=== PATIENT | female | born 1930 | race Caucasian/White ===

== ENCOUNTER 2017-07-08 18:51 | Emergency (ER) | payer MEDICARE, OTHER ==
[~2017-07-08] VITALS: Ht 152.4 cm; Wt 75.0 kg
[~2017-07-08 18:51] MED LIST: ACET325C PO; Aspirin-Expunged Drug, Do Not Renew! PO; CA C1TAB29 PO; CALC-762 PO; CYA1000I IM; CYAN10008 PO; CYCL1DRO BOTH_EYES; DOCU240C41 PO; GABA-502 PO; OXYC1TAB24 PO; POLY17PO6 PO
[2017-07-08 19:11] VITALS: BP 174/83; PULSE 65; RESP 18; O2SAT 97
--- NOTE | 2017-07-08 19:34 | ED.REPORT ---
HPI-Extremity Problem Upper Date of Service Jul 08, 2017 ED Provider: Kevon Miller DO Pt is an otherwise healthy 87 year old female who presents to the ED complaining of a hematoma on her left arm onset 3 days ago. She denies any other symptoms. Pt denies taking Warfarin, but she reports that she takes 81mg of Aspirin daily. She denies any known injury. Nursing Notes Stated Complaint: SPONTANEOUS HEMATOMA OF FOREARM Chief Complaint: Extremity Trauma Nursing Notes Reviewed: Yes Allergies: Coded Allergies: Sulfa (Sulfonamide Antibiotics) (Verified Allergy, Unknown, RASH, 11/16/15 ) alendronate sodium (Verified Allergy, Unknown, UNKNOWN, 05/15/16) Scheduled ([Aspirin-Expunged Drug, Do Not Renew!]) 325 MG TABLET 325 MG PO DAILY Ca Cmb 1/Vit D3/B-6/FA/B12/Av (Vitamin D3-Aloe 1,000 Unit Tab) 1 Each Tablet 1 EACH PO BID Calcium Carbonate/Vitamin D3 (Calcium 1,000 + D3 Caplet) 1 Each Tablet 1 EACH PO BID Cyanocobalamin (Cyanocobalamin Injection) 1,000 Mcg/1 Ml Vial 1,000 MCG IM WKLY X4 Cyanocobalamin (Vitamin B-12) (Vitamin B-12) 1,000 Mcg Tablet 1,000 MCG PO BID Cyclosporine (Restasis) 1 Each Droperette 1 DRP BOTH_EYES BID Docusate Calcium (Stool Softener) 240 Mg Capsule 240 MG PO QPM Gabapentin (Gabapentin) 300 Mg Capsule 600 MG PO HS Polyethylene Glycol 3350 (Miralax) 17 Gm Powd.pack 17 GM PO BID Scheduled PRN Acetaminophen (Acetaminophen) 325 Mg Capsule 650 MG PO Q4H PRN PRN PRN oxyCODONE-Acetaminophen 5-325 mg (oxyCODONE-Acetaminophen 5-325 mg) 1 Each Tablet 1-2 TAB PO Q4H PRN PRN For Severe Pain General Time Seen by MD: 19:20 Chief Complaint Other (Left arm hematoma) Hx Obtained From: Patient Arrived By: Walk-in Onset Occurred: 3 days ago Symptom Duration: Since onset Severity: Current: No pain currently Severity: Maximum: No pain Recent Healthcare: Recent doctor visit Similar Sx Previous: No Past Medical History Past Medical History Notes: admitted 07/08 with tibial and humeral fx after fall from stepladder. DC from [facility] 2 weeks ago after that admit Past Medical History 1. 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 Cruz. 2. Actinic keratosis. 3. Osteoporosis, previously on Evista. 4. Chronic constipation. 5. History of foot surgery. 6. Left carpal tunnel release. 7. Uterine prolapse. 8. History of vertigo. 9. Osteoarthritis. 10. Compression fracture of T9 in 2007, and L1 in 2006. 11. Chronic knee pain, followed by Dr. Gustafson. Previous cervical steroid injections December 2014, and MRI at that time showing stress fracture pattern with lateral tibial plateau fracture Past Surgical History Reports: Cholecystectomy, Hysterectomy Smoking History Former Smoker Social History Alcohol Use: 1-3 per day Drug Use: Denies drug use Occupation Retired Ambulatory Status Independent Review of Systems Constitutional: Denies: Fever Skin: Reports Bruising Complete sys rev & neg: except as marked. Respiratory: Denies: Non-productive cough, Shortness of breath Physical Exam Initial Vital Signs Vital Signs (First) Date Time Temp Pulse Resp B/P Pulse Ox O2 Delivery O2 Flow Rate FiO2 07/08/17 19:11 36.6 65 18 174/83 97 Room Air Initial VS: Reviewed Head / Eyes: Atraumatic, Normocephalic Neck: Supple, Full range of motion Respiratory: Breath sounds normal, Clear to auscultation, No respiratory distress Cardiovascular: Regular rate & rhythm, Heart sounds normal, Intact distal pulses Abdomen / GI: Soft, Non-tender Lower Extremities: Vascular intact, Neuro intact Skin: Warm, Dry, No cyanosis Neurologic: Alert, Oriented, Nonfocal Psychiatric: Mood/affect normal, Behavior normal General/Constitutional: Awake, Alert, Not toxic appearing Upper Extremity / MS: Neurologic intact, Vascular intact Ecchymosis to antebrachial fossa Interpretation & Diagnostics US VENOUS ARM DUPLEX, LEFT: IMPRESSION: 1. No DVT in the left upper extremity. Dictated by: Penelope Bermudez M.D. on 07/08/2017 at 20:37 Lab Results Interpretation Result Diagram: 07/08/17193707/08/171937 Test 07/08/17 19:38 White Blood Count 5.3th/mm3 (3.8-10.1) Red Blood Count 4.19mil/mm3 (3.90-5.20) Hemoglobin 13.0g/dL (12.0-15.6) Hematocrit 38.9% (35.0-46.0) Mean Corpuscular Volume 92.8fL (81-100) Mean Corpuscular Hemoglobin 31.0pg (27.0-35.0) Mean Corpuscular Hemoglobin Concent 33.4% (32.0-37.0) Red Cell Distribution Width 13.6% (12.3-15.4) Platelet Count 270bil/L (150-400) Neutrophils (%) (Auto) 56.1% (40-74) Lymphocytes (%) (Auto) 27.2% (14-46) Monocytes (%) (Auto) 9.3% (4-12) Eosinophils (%) (Auto) 6.8% (0-5) Basophils (%) (Auto) 0.2% (0-3) Prothrombin Time 9.8sec (8.1-12.5) Prothromb Time International Ratio 0.92ratio Sodium Level 136mEq/L (134-144) Potassium Level 4.0mEq/L (3.5-5.2) Chloride Level 99mEq/L (97-108) Carbon Dioxide Level 24mmol/L (18-29) Blood Urea Nitrogen 27mg/dL (8-27) Creatinine 0.75mg/dL (0.57-1.00) Estimat Glomerular Filtration Rate 104mL/min (>59) Glucose Level 91mg/dL (60-99) Calcium Level 9.8mg/dL (8.5-10.1) Total Bilirubin 0.4mg/dL (0.0-1.2) Aspartate Amino Transf (AST/SGOT) 19U/L (0-50) Alanine Aminotransferase (ALT/SGPT) 14U/L (0-32) Alkaline Phosphatase 63U/L (25-165) Total Protein 7.7g/dL (6.4-8.4) Albumin 4.3g/dL (3.4-5.0) Re-Eval/Medical Decision Source of Hx: Old records Re-Evaluation/Progress : Time of Eval: 21:00 Re-Evaluation/Progress Note: Pt rechecked. Informed pt of plan for discharge. Pt understands and agrees with plan for discharge. F/U instructions and RTER warnings given. All questions addressed. Counseled Regarding: Diagnosis, Lab results, Need for follow-up, When/why to return to ED Discharge & Departure Impression: Primary Impression: Superficial vein thrombosis Disposition: Home Discharge Condition All VS Reviewed: Yes Condition: Stable Patient Instructions: Superficial Thrombophlebitis (ED) Additional Instructions: The clot appears to be in the superficial vein. The ultrasound indicated that it was not in the deep vein. Continue taking your aspirin. I do recommend a follow up ultrasound in 5-7 days Call your primary care provider tomorrow for a follow up appointment this week. If the clot grows in size, you may need to be on an anticoagulant. Return to the Emergency Department for any new or worrisome symptoms. Referrals: Brandi Falcon MD (PCP) Jessica Attestation Portions of this note were transcribed by Justina Childress. I, Dr. Miller personally performed the history, physical exam and medical decision-making; I reviewed and confirmed the accuracy of the information in the transcribed note. Signed by : Jessica Guerra, 07/08/17. copies to: Brandi Falcon MD, Todd P DO Jul 08, 2017 19:34 Justina Kyle Jul 08, 2017 19:55
[2017-07-08 20:04] LABS: BASOPHILS % (AUTO) 0.2 % (0-3); EOSINOPHILS % (AUTO) 6.8 % (0-5); MONOCYTES % (AUTO) 9.3 % (4-12); Mean Corpuscular Volume 92.8 fL (81-100); NEUTROPHILS % (AUTO) 56.1 % (40-74); Platelet Count 270 bil/L (150-400)
[2017-07-08 20:29] LABS: INR 0.92 ratio
--- NOTE | 2017-07-08 20:42 | DRSVH ---
PROCEDURE: US VENOUS ARM DUPLEX UNILATERAL, LEFT INDICATIONS: swelling, ecchymosis TECHNIQUE: Real-time imaging, as well as color and pulse Doppler interrogation, was performed of the left upper extremity deep veins from the inferior neck to the antecubital fossa. COMPARISON: None. FINDINGS: The internal jugular vein, visualized portions of the subclavian vein, axillary, and brach ial veins are free of intraluminal thrombus. Where physically possible, the veins are normally compr essible. Color and pulse Doppler demonstrate normal intraluminal flow, with expected phasicity and p ulsatility. Additional scanning of the cephalic and basilic veins of the superficial system demonstr ate normal compressibility, without thrombus. IMPRESSION: 1. No DVT in the left upper extremity. Dictated by: Penelope Bermudez M.D. on 07/08/2017 at 20:37 Approved by: Penelope Bermudez M.D. on 07/08/2017 at 20:40
[2017-07-08 21:10] VITALS: BP 142/81; PULSE 64; O2SAT 96
== END 2017-07-08 21:11 | disposition home or self-care (01) ==
LOC: SED 18:51
DX: I82.612 Acute embolism and thrombosis of superficial veins of left upper extremity (principal); M81.0 Age-related osteoporosis without current pathological fracture; M19.90 Unspecified osteoarthritis, unspecified site; M50.30 Other cervical disc degeneration, unspecified cervical region; M25.569 Pain in unspecified knee; G89.29 Other chronic pain; L57.0 Actinic keratosis; Z87.81 Personal history of (healed) traumatic fracture; Z87.891 Personal history of nicotine dependence; Z79.82 Long term (current) use of aspirin; Z88.2 Allergy status to sulfonamides; Z88.8 Allergy status to other drugs, medicaments and biological substances